=== PATIENT | male | born 1950 | race Caucasian/White ===

== ENCOUNTER → 2020-11-30 | Outpatient (CLI) | payer OTHER ==
[~2020-11-30] MED LIST: BETA BLOCKER; CHOLESTEROL MED; FLOMAX PO; NORCO 5-325 TA1 EACH PO; PERCOCET 5-3251 EACH PO; PHENERGAN 25 MG25 M1 PO
--- NOTE | 2020-11-30 17:37 | CARDNUC ---
[place] [address] CARDIAC NUCLEAR IMAGING REPORT Name: GIOVANNI CROFT Room: [facility]#: [id number] Admission: 11/30/20 Attend Phys: Miguel A Dasilva, Discharge: Date of : 52 Date of Service: 11/30/20 1736 Report #: [id number] THIS REPORT FOR: cc: Zachary Paez Bradley L. DO Liston, Michael J. MD [facility] ~ APPROVED REPORT Imaging Protocol: Rest Tc-99m/Stress Tc-99m 1 day Study performed: 11/30/2020 09:30:00 Indication: Dyspnea Patient Location: Out-Patient Stress Tech: Verenice Fields Stress Nurse: Zeynep Mcduffie RN NM Tech:MARCO A Tineo Ht: 6 ft 0 in Wt: 204 lbs BSA: 2.15 m2 BMI: 27.66 Medical History Medical History: Diabetes, Former Smoker, HTN, Hyperlipidemia Medications: asa-81, atorvastatin, carvedilol, lisinopril Allergies: No known drug allergies Cardiac Risk Factors: Age, DM, FHX of CAD, HTN, Hyperlipidemia, Past Smoker Exercise History: Indeterminate Meds Held (24 hrs): carvedilol Resting Data Rest SPECT myocardial perfusion imaging was performed in supine position 30 minutes following the intravenous injection of 10.3 mCi of Tc-99m Sestamibi. Time of rest injection: 1000 Date: 11/30/2020 The images were gated to evaluate regional wall motion and calculate left ventricular ejection fraction. Administration Route: IV Administration Site: Right AC Pharmacologic Stress Pharmacologic stress test was performed by injecting Regadenoson 0.4 mg IV push over 10-15 seconds immediately followed by the intravenous injection of 32.6 mCi of Tc-99m [place] [address] CARDIAC NUCLEAR IMAGING REPORT Name: GIOVANNI CROFT Room: [facility] Brandan#: [id number] Admission: 11/30/20 Attend Phys: Miguel A Dasilva, Discharge: Date of : 52 Date of Service: 11/30/20 1736 Report #: [id number] Time of stress injection: 1130 Date: 11/30/2020 Administration Route: IV Administration Site: Right AC Gated Stress SPECT was performed 40 minutes after stress injection. The images were gated to evaluate regional wall motion and calculate left ventricular ejection fraction. Prone imaging was performed. Stress Test Details Stress Test: Exercise stress converted to pharmacologic stress due to failure to obtain a diagnostic stress test. Reason for pharmacologic stress test: changed from exercise stress test due to inability to reach target heart rate. HR Max Heart Rate (APMHR): 151 bpm Resting HR: 57 bpm Target HR (85% APMHR): 128 bpm Max HR Achieved: 111 bpm % of APMHR: 73 Recovery HR: 83 bpm BP Resting BP: 133/71 mmHg Max BP: 170/41 mmHg Recovery BP: 119/64 mmHg ECG Resting ECG: Sinus Rhythm Stress ECG: Sinus Tachycardia ST Change: None Arrhythmia: None Recovery ECG: Sinus Rhythm Recovery ST Change: None Recovery Arrhythmia: None Clinical Reason for Termination: Completed protocol, Fatigue The patient tolerated walking Lexiscan stress without significant complaint. Nurse Comments pt unable to reach target heartrate on treadmill, changed to walking alexis Stress ECG Conclusion The baseline twelve-lead EKG shows sinus rhythm without significant ST segment or T wave abnormality. EKGs [place] [address] CARDIAC NUCLEAR IMAGING REPORT Name: GIOVANNI CROFT Room: [facility]#: [id number] Admission: 11/30/20 Attend Phys: Miguel A Dasilva, Discharge: Date of : 52 Date of Service: 11/30/20 1736 Report #: [id number] walking Lexiscan protocol show sinus rhythm and sinus tachycardia with no significant ST segment or T wave changes when compared to baseline. There were no stress-induced arrhythmias. Study Quality Study: Good Artifact: No artifact Study Data At rest, the left ventricular ejection fraction was 61%.. Post stress, the left ventricular ejection was 65%.. TID = 0.83. Perfusion Perfusion images show a small in size severe in intensity fixed defect involving the basal portion of the inferior wall consistent with prior infarct. No other fixed or reversible defects were identified. Wall Motion Global LV systolic function is preserved with hypokinesis noted in the basal portion of the inferior wall consistent with prior infarct. Nuclear Conclusion ECG Findings: negative for ischemia Clinical Findings: negative for ischemia Nuclear Findings: negative for ischemia Exercise Capacity: not assessed Left Ventricular Function: Preserved Risk Study: low Perfusion images suggest prior infarct of the basal portion the inferior wall. Global LV systolic function is fairly well-preserved. There were no other defects to suggest additional infarct or ischemia. This is a low risk study. <Conclusion> The baseline twelve-lead EKG shows sinus rhythm without significant ST segment or T wave abnormality. EKGs obtained during and post walking Lexiscan protocol show sinus rhythm and sinus tachycardia with no significant ST segment or T wave changes when compared to baseline. There were no stress-induced arrhythmias. <ELECTRONICALLY SIGNED> By: Miguel A Dasilva MD, [facility] 11/30/20 1736 [id number] Miguel A Dasilva MD, FACC /INF
== END ==
LOC: M.NUC 04-13 14:53 → M.CRD 10-13 08:00 → M.NUC 10-13 08:00 → M.CRD 09:00 → M.NUC 09:19
PROVIDERS: ATTEND Internal Medicine Cardiovascular Disease
DX: I25.10 Atherosclerotic heart disease of native coronary artery without angina pectoris (principal)